=== PATIENT | male | born 1985 | race Caucasian/White ===

== ENCOUNTER → 2020-12-30 | Outpatient (CLI) | payer BC ==
[2020-12-30 07:56] LABS: HEMOGLOBIN 15.3 gm/dl (14.0-17.5); RED BLOOD COUNT 5.32 M/UL (4.20-5.50); WHITE BLOOD COUNT 5.6 K/UL (4.5-11.0)
[2020-12-30 08:16] LABS: BUN/CREATININE RATIO 11 (0-10)
== END ==
LOC: LAB 07:29
PROVIDERS: Family Medicine
DX: R35.0 Frequency of micturition (principal); R63.1 Polydipsia; R53.83 Other fatigue
CPT/HCPCS: 80053; 82607; 85027; 87086